=== PATIENT | female | born 1945 | race Caucasian/White ===

== ENCOUNTER → 2023-12-13 09:00 | Outpatient (REF) | payer OTHER, SELFPAY ==
[2023-12-13 09:29] VITALS: BP 142/83; BP_SYST 73
[2023-12-13 10:50] VITALS: BP 195/87
== END ==
LOC: RADI 09:00
PROVIDERS: ATTENDING PHYSICIAN Otolaryngology; FAMILY PHYSICIAN Family Medicine
DX: C08.0 Malignant neoplasm of submandibular gland (principal)
CPT/HCPCS: 88173; 88305; 38505; 76942; 87070; 88333; 88341; 88342